=== PATIENT | male | born 1985 | race Caucasian/White ===

== ENCOUNTER 2021-05-26 09:06 | Emergency (ER) | payer OTHER ==
[~2021-05-26] VITALS: Ht 190.5 cm; Wt 81.6 kg
[2021-05-26 09:26] VITALS: BP 132/89
--- NOTE | 2021-05-26 09:26 | NUR ---
BIBS C/O CHILLS /BODY ACHE X 2 DAYS. PT VITALS ARE WITHIN NORMAL LIMTIS. BREATHING IS EVEN AND UNLABORED.
[2021-05-26] MEDS ORDERED: ACETAMINOPHEN ES 500 MG TABLET ONE (09:59)
[2021-05-26] MEDS ORDERED: ONDANSETRON 4 MG TAB.RAPDIS ONE (09:59)
[2021-05-26] MEDS ORDERED: IBUPROFEN 600 MG TABLET ONE (09:59)
[2021-05-26] MEDS ORDERED: ONDANSETRON 4 MG TAB.RAPDIS PO ONE (10:00)
[2021-05-26] MEDS ORDERED: ACETAMINOPHEN ES 500 MG TABLET PO ONE (10:00)
[2021-05-26] MEDS ORDERED: IBUPROFEN 600 MG TABLET PO ONE (10:00)
--- NOTE | 2021-05-26 10:02 | NUR ---
COVID ANTIGEN AND RAPID INFLUENZA SWABS DONE AND SENT TO THE LAB
[2021-05-26] MEDS ORDERED: ONDA4TAB5 PO (13:49)
--- NOTE | 2021-05-26 14:40 | NUR ---
Patient discharged to home in stable condition. Written and verbal after care instructions given. Patient verbalizes understanding of instruction.
== END 2021-05-26 14:40 | disposition home or self-care (01) ==
LOC: ER 09:11
DX: B34.9 Viral infection, unspecified (principal); Z20.822 Contact with and (suspected) exposure to COVID-19
CPT/HCPCS: 87426; 87804; 99284; C9803; Q0162

== ENCOUNTER → 2022-05-25 | Emergency (ER) | payer OTHER ==
[~2022-05-25] VITALS: Ht 190.5 cm; Wt 81.6 kg
[~2022-05-25] MED LIST: ONDA4TAB5 PO
--- NOTE | 2022-05-25 13:05 | NUR ---
"ANXIETY/PANIC ATTACK STARTED LAST NIGHT AFTER HAVING 2 SHOTS OF WHISKEY"
--- NOTE | 2022-05-25 13:21 | NUR ---
established iv line right ac 18g
[2022-05-25 14:28] LABS: BASOPHILS # (AUTO) 0.1 K/uL (0.0-0.2); BASOPHILS % (AUTO) 0.7 % (0.0-2.0); EOSINOPHILS % (AUTO) 4.1 % (0.0-6.0); HEMATOCRIT 45 % (39-51); HEMOGLOBIN 15.5 g/dL (13.5-17.5); LYMPHOCYTES # (AUTO) 2.1 K/uL (0.8-4.8); LYMPHOCYTES % (AUTO) 28.1 % (20.0-44.0); MEAN CORPUSCULAR HGB CONC 34 g/dl (31.0-36.0); MEAN CORPUSCULAR VOLUME 87 fL (80-96); MONOCYTES # (AUTO) 0.4 K/uL (0.1-1.30); MONOCYTES % (AUTO) 5.4 % (2.0-12.0); NEUTROPHILS # (AUTO) 4.5 K/uL (1.8-8.9); NEUTROPHILS % (AUTO) 61.7 % (43.0-81.0); PLATELET COUNT (AUTO) 275 K/uL (150-450); RED BLOOD CELL COUNT(AUTO) 5.15 MIL/uL (4.5-6.0); WHITE BLOOD COUNT (AUTO) 7.3 K/uL (4.3-11.0)
[2022-05-25 14:59] LABS: CALCIUM, SERUM 9.4 mg/dL (8.5-10.1); CARBON DIOXIDE 26 mmol/L (21-32); CHLORIDE 99 mmol/L (98-107); CREATININE 0.9 mg/dL (0.6-1.3); GLUCOSE 86 mg/dL (74-106); POTASSIUM 3.7 mmol/L (3.5-5.1); SODIUM SERUM 140 mmol/L (136-145); UREA NITROGEN, BLOOD 10 mg/dL (7-18)
[2022-05-25 16:12] VITALS: BP 145/80
--- NOTE | 2022-05-25 16:12 | NUR ---
IV removed. Catheter intact and site benign. Pressure and 4x4 applied to site. No bleeding noted.
--- NOTE | 2022-05-25 16:12 | NUR ---
Patient discharged to home in stable condition. Written and verbal after care instructions given. Patient verbalizes understanding of instruction.
== END | disposition home or self-care (01) ==
LOC: ER 12:55
DX: F41.1 Generalized anxiety disorder (principal); Z60.2 Problems related to living alone
CPT/HCPCS: 36415; 71045-TC; 80048-TC; 84443-TC; 84484-TC; 85025-TC